=== PATIENT | male | born 1995 | race American Indian/Alaskan Native ===

== ENCOUNTER 2021-01-04 00:35 | Emergency (ER) | payer MEDICAID ==
[2021-01-04 01:01] VITALS: BP 120/80
--- NOTE | 2021-01-04 01:46 | XRay Report ---
CHEST 2 VIEWS INDICATION / CLINICAL INFORMATION: chest pain; PT STATES LEFT SIDE CHEST PAIN. COMPARISON: None available. FINDINGS: SUPPORT DEVICES: None. HEART / MEDIASTINUM: No significant abnormality. LUNGS / PLEURA: No significant pulmonary or pleural abnormality. No pneumothorax. ADDITIONAL FINDINGS: No significant additional findings. IMPRESSION: 1. No acute findings. Signer Name: Cory Payan MD Signed: 01/04/2021 1:42 AM Workstation Name: [id number]
--- NOTE | 2021-01-04 02:20 | Emergency Department Report ---
<BENNIE VILLAGOMEZ - Last Filed: 01/04/21 02:15> ED General Adult HPI - General Chief complaint: Chest Pain Stated complaint: CHEST WALL PAIN Time Seen by Provider: 01/04/21 01:18 Source: EMS Mode of arrival: Stretcher Limitations: No Limitations - History of Present Illness Initial comments: 25-year-old -Citizen Of [place] male [facility] emerge department complaining of pain to the chest follow-up primarily with lifting pushing and pulling but he reports no direct trauma. States he is unsure of the actual cause with chest pain is not associated with any fevers, chills, sweats, cough, congestion, hemoptysis, hematemesis hematochezia, dyspnea. No headache no presyncope -: Gradual Radiation: non-radiation Quality: dull Consistency: constant Improves with: none Worsens with: none Associated Symptoms: denies other symptoms Treatments Prior to Arrival: none - Related Data Previous Rx's Medication Instructions Recorded Last Taken Type Ketorolac [Toradol] 10 mg PO Q6H PRN #20 tablet 01/04/21 Unknown Rx Allergies Allergy/AdvReac Type Severity Reaction Status Date / Time No Known Allergies Allergy Verified 01/04/21 01:00 ED Review of Systems Comment: All other systems reviewed and negative ED Past Medical Hx - Past Medical History Previous Medical History?: Yes Hx Psychiatric Treatment: (schizophrenia) - Medications Home Medications: Home Medications Medication Instructions Recorded Confirmed Last Taken Type Ketorolac [Toradol] 10 mg PO Q6H PRN #20 tablet 01/04/21 Unknown Rx ED Physical Exam - General Limitations: No Limitations General appearance: alert, in no apparent distress - Head Head exam: Present: atraumatic, normocephalic - Eye Eye exam: Present: normal appearance - ENT ENT exam: Present: mucous membranes moist - Neck Neck exam: Present: normal inspection - Respiratory Respiratory exam: Present: normal lung sounds bilaterally, chest wall tenderness (Pain to the mid chest region above the xiphoid process along the sternal border primarily present with palpation and opposed adduction. No subcutaneous emphysema. No crepitus. No lifts heaves or thrills. No step-offs noted.). Absent: respiratory distress - Cardiovascular Cardiovascular Exam: Present: regular rate, normal rhythm. Absent: systolic murmur, diastolic murmur, rubs, gallop - GI/Abdominal GI/Abdominal exam: Present: soft, normal bowel sounds - Rectal Rectal exam: Present: deferred - Extremities Exam Extremities exam: Present: normal inspection - Back Exam Back exam: Present: normal inspection - Neurological Exam Neurological exam: Present: alert, oriented X3 - Psychiatric Psychiatric exam: Present: normal affect, normal mood - Skin Skin exam: Present: warm, dry, intact, normal color. Absent: rash ED Medical Decision Making - EKG Data EKG shows normal: sinus rhythm Rate: normal - EKG Data When compared to previous EKG there are: no significant change Interpretation: no acute changes - Radiology Data Radiology results: report reviewed [facility] [address] [place] [address] XRay Report Signed Patient: LILIAN GROSS MR#: [id number] : 1995 Acct:[id number] Age/Sex: 25 / M ADM Date: 01/04/21 Loc: ED Attending Dr: Ordering Physician: MIRI SALAS MD Date of Service: 01/04/21 Procedure(s): XR chest routine 2V Accession Number(s): [id number] cc: ED MD JOSUE Fluoro Time In Minutes: CHEST 2 VIEWS INDICATION / CLINICAL INFORMATION: chest pain; PT STATES LEFT SIDE CHEST PAIN. COMPARISON: None available. FINDINGS: SUPPORT DEVICES: None. HEART / MEDIASTINUM: No significant abnormality. LUNGS / PLEURA: No significant pulmonary or pleural abnormality. No pneumothorax. ADDITIONAL FINDINGS: No significant additional findings. IMPRESSION: 1. No acute findings. Signer Name: Cory Payan MD Signed: 01/04/2021 1:42 AM Workstation Name: [id number] Transcribed By: CW Dictated By: NICOLETTE PAYAN MD Electronically Authenticated By: NICOLETTE PAYAN MD Signed Date/Time: 01/04/21141 DD/ 1 TD/TT: Print Cancel - Medical Decision Making This patient presents with chest pain that is very unlikely angina or acute coronary syndrome. The emergency department evaluation has not identified any cause for suspicion that this chest pain has a cardiac etiology. Based on their history, EKG (which showed no evidence of ischemia or infarction) and imaging, in addition to the patient's physical exam, I see no evidence at this time for a malignant etiology for the patient's chest pain. There is no acute evidence for pulmonary embolus, acute myocardial infarction, pneumothorax, Boerhaeve syndrome, cardiac tamponade, thoracic artery dissection, or any other emergent cardiac, pulmonary or aortic pathology. Given the low pre-test probability for cardiac etiology of chest pain and the absence of any sign of ischemia or infarction, discharge for outpatient follow-up and further evaluation is reasonable. I have explained to the patient that even though a cardiac problem is very unlikely, follow-up and further testing is required to reduce further the already small uncertainty that exists. Other life-threatening diagnoses have been considered. The patient understands the need to return immediately if their symptoms worsen or they develop any new symptoms, and not to engage in any significant exertional activity until follow-up is obtained. ED Disposition Clinical Impression: Chest pain Disposition: HOME / SELF CARE / HOMELESS Is pt being admited?: No Does the pt Need Aspirin: No Condition: Stable Instructions: Nonspecific Chest Pain, Adult, Costochondritis Additional Instructions: You were evaluated emergency department today for chest pain. 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 Please schedule an appointment for follow-up with your primary care physician as soon as possible. Return to emergency department if you expands worsening uncontrolled chest pain, shortness of breath, lightheadedness, feeling faint, nausea, vomiting or any other concerning symptoms. Prescriptions: Ketorolac [Toradol] 10 mg PO Q6H PRN #20 tablet PRN Reason: Pain Referrals: [facility] [Provider Group] - 3-5 Days FRANCO GONZALEZ MD [Staff Physician] - 3-5 Days <YANI WALL - Last Filed: 01/04/21 21:26> ED Review of Systems ROS: Stated complaint: CHEST WALL PAIN Other details as noted in HPI ED Course Vital Signs 01/04/21 01:00 Temperature 98.6 F Pulse Rate 80 Respiratory 18 Rate Blood Pressure 120/80 [Left] O2 Sat by Pulse 99 Oximetry ED Medical Decision Making - Medical Decision Making EKG reviewed by me and patient examined at the bedside. Patient has signs of early repole on initial and repeat EKG without acute changes. Patient has cramping left-sided upper abdominal pain radiating to the chest with palpation and movement. Patient denies associated symptoms of shortness of breath, nausea, vomiting, or diaphoresis. Patient denies cardiac risk factors including hypertension, diabetes, family history of CAD, smoking, or cocaine abuse. Patient provided NSAIDs in the ED with plan for discharge with prescription and outpatient follow-up Critical care attestation.: If time is entered above; I have spent that time in minutes in the direct care of this critically ill patient, excluding procedure time. ED Disposition Is pt being admited?: No
[2021-01-04] MEDS ORDERED: KETOROLAC 60 MG/2 ML INJ IM STA (04:53)
--- NOTE | 2021-01-05 09:43 | Electrocardiograph Report ---
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
--- NOTE | 2021-01-05 09:43 | Electrocardiograph Report ---
[facility] Test Date: 2021-01-04 Test Time: 04:44:06 Pat Name: LILIAN GROSS Department: Room: Gender: M Retail Stocker: : 1995 Requested By: LAVINIA HINES Order Number: [id number] Reading MD: Lamont Fonseca Measurements Intervals [place] Rate: 74 P: 25 ME: 136 QRS: 78 QRSD: 95 T: -1 QT: 358 QTc: 398 Interpretive Statements Sinus rhythm Borderline ST elevation, anterior leads Compared to ECG 01/04/2021 01:00:04 Myocardial infarct finding now present ST (T wave) deviation still present Electronically Signed On 01-05-2021 9:43:26 EDT by Lamont Fonseca
== END 2021-01-04 07:01 | disposition home or self-care (01) ==
LOC: ED 00:35
DX: R07.89 Other chest pain (principal); F20.9 Schizophrenia, unspecified; Z98.890 Other specified postprocedural states
CPT/HCPCS: 71046; 93005; 96372; 99283; J1885